=== PATIENT | male | born 1985 | race Caucasian/White ===

== ENCOUNTER 2020-11-14 18:54 | Emergency (ER) | payer OTHER ==
[2020-11-14] MEDS ORDERED: Sulfameth/Trimethoprim DS 800-160mg TAB ONE (19:14)
== END 2020-11-14 19:37 | disposition home or self-care (01) ==
LOC: ERS 18:54
DX: L02.415 Cutaneous abscess of right lower limb (principal); F17.210 Nicotine dependence, cigarettes, uncomplicated
CPT/HCPCS: 99283

== ENCOUNTER 2023-04-06 21:02 | Emergency (ER) | payer OTHER | END 2023-04-06 22:37 | disposition home or self-care (01) | LOC: ERS 21:02 | DX: M79.672 Pain in left foot (principal); F17.210 Nicotine dependence, cigarettes, uncomplicated; F17.290 Nicotine dependence, other tobacco product, uncomplicated; X58.XXXA Exposure to other specified factors, initial encounter ==

== ENCOUNTER 2024-06-01 15:35 | Emergency (ER) | payer OTHER ==
[2024-06-01] MEDS ORDERED: Ketorolac Tromethamine 30 MG (1 mL) VIAL ONE ×2 (18:55→18:57)
== END 2024-06-01 19:06 | disposition home or self-care (01) ==
LOC: ERS 15:35
DX: K02.9 Dental caries, unspecified (principal); K04.7 Periapical abscess without sinus; K08.89 Other specified disorders of teeth and supporting structures; F17.210 Nicotine dependence, cigarettes, uncomplicated; F17.290 Nicotine dependence, other tobacco product, uncomplicated
CPT/HCPCS: 99282; J1885